=== PATIENT | female | born 1970 | race Caucasian/White ===

== ENCOUNTER 2017-09-12 13:53 | Emergency (ER) | payer BC ==
[2017-09-12] MEDS ORDERED: PREMIERPRO RX5 MG/GM OU (14:06)
[2017-09-12 15:35] VITALS: BP 118/74
== END 2017-09-12 15:35 | disposition home or self-care (01) ==
LOC: ED 13:53
DX: H10.9 Unspecified conjunctivitis (principal); Z88.2 Allergy status to sulfonamides